=== PATIENT | male | born 1980 | race Caucasian/White ===

== ENCOUNTER 2023-11-27 08:29 | Outpatient (AMB) | payer OTHER, SELFPAY ==
--- NOTE | 2023-11-27 08:39 | AM.OFFWIN_ITS ---
Intake Vital Signs 11/27/23 08:40 Height 5 ft 8 in Weight 270 lb BMI 41.0 BP 108/76 Blood Pressure Location Lt radial Position Sitting Pulse 72 Pulse Source Pulse Oximeter Temp 99.1 F Temp Source Oral Pulse Oximetry (%) 98 Oxygen Delivery Method Room Air Intake Visit Reasons: Pain Ribs on rt side (week ago) Intake Note: pt here c/o RT side rib pain. Started a week ago. Fell in shower 6 months ago. Intermittent pain Patient Tobacco Use Status: Never used Tobacco Allergies Penicillins Allergy (Intermediate, Verified 11/27/23 08:44) Unknown Sulfa (Sulfonamide Antibiotics) Allergy (Intermediate, Verified 11/27/23 08:44) Hives Do you need a note to return to daycare/school/sports/work: Yes HPI HPI Comments History of Present Illness Details Patient is a 43-year-old male complaining of right-sided rib pain and pain with deep inspiration. He states he fell in the shower about 6 months ago on the right side at 1st the pain was really bad but then it got better over time. However he states last week [place] the beach with [place] nephews and he was catching a football and fell on his right side again. He did not think anything of it at the time but over the weekend the pain has gotten worse. He has tried taking ibuprofen and acetaminophen with no relief. [facility] Social History Patient Tobacco Use Status: Never used Tobacco Review of Systems Const All systems reviewed & are unremarkable except as noted in HPI and below Physical Exam Vital Signs: Last Vital Signs Temp 99.1 F 11/27/23 08:40 Pulse 72 11/27/23 08:40 BP 108/76 11/27/23 08:40 Pulse Ox 98 11/27/23 08:40 Oxygen Delivery Method Room Air 11/27/23 08:40 BMI result Body Mass Index 41.0 Const General: cooperative, healthy appearing, comfortable, no acute distress and well developed Orientation/consciousness: patient oriented x3 Limitations: no limitations HEENT Head: Yes normal to inspection Eyes General: appearance normal, both eyes and all related structures Neck Neck: Yes normal visual inspection and Yes full ROM Chest Chest palpation & inspection: normal inspection of the chest and localized rib tenderness with anteroposterior compression right anterior-axillary line involving the 6th rib Resp Effort & Inspection: normal respiratory effort and able to speak in complete sentences Auscultation: clear to auscultation bilaterally Skin General skin exam: no rashes or lesions noted Neuro General: patient oriented x3 Extrem General: Yes normal to inspection Assessment & Plan Assessment & Plan (1) Rib pain on right side: Code(s): R07.81 - Pleurodynia Plan: We will get chest x-ray to rule out pneumo and assess for rib fracture. Did tell patient the treatment is the same regardless especially if it is a small pneumo, there is no actual treatment. Recommended using ibuprofen 600 mg every 6 hours, diclofenac gel and lidocaine patches (2) Pleurodynia: Code(s): R07.81 - Pleurodynia Plan: See above Plan See above Orders: Orders XR chest 2V Today R07.81 - Pleurodynia Coding Level of Care Code New Pt Level 4 (98138) Diagnoses Rib pain on right side R07.81 Pleurodynia R07.81
[2023-11-27 08:40] VITALS: BP 108/76; PULSE 72; TEMP 37.3; O2SAT 98; BMI 41.0
== END 2023-11-27 09:28 | disposition home or self-care (01) ==
PROVIDERS: PCP Family Medicine; Visit Provider Physician Assistant
DX: R07.81 Pleurodynia (principal)
CPT/HCPCS: 99204

== ENCOUNTER 2023-11-27 09:14 | Outpatient (REF) | payer OTHER, SELFPAY ==
--- NOTE | ~2023-11-27 | XR_ITS ---
EXAMINATION: XR CHEST CLINICAL INFORMATION: Pleurodynia. COMPARISON: None available. TECHNIQUE: 2 views of the chest were obtained. FINDINGS: There is no gross pneumothorax. Heart size within normal limits. Lung volumes are low. No gross pleural effusion. Mild degenerative changes in the thoracic spine. No focal consolidation to suggest pneumonia. XR/XR chest 2V IMPRESSION: Low lung volumes. No evidence of pneumonia or pleural effusion. This study was presented today November 27, 2023 for interpretation. Stat results provided at this time as requested by referring provider.
== END 2023-11-27 09:15 | disposition home or self-care (01) ==
LOC: HO.HMGCX 09:14
PROVIDERS: Visit Provider Physician Assistant
DX: R07.81 Pleurodynia (principal)
CPT/HCPCS: 71046